=== PATIENT | male | born 1980 | race Caucasian/White ===

== ENCOUNTER 2017-01-24 12:50 | Observation (INO) | payer BC ==
--- NOTE | 2017-01-24 13:13 | ER Document Report ---
ED Medical Screen (RME) - General Chief Complaint: Chest Tightness Stated Complaint: CHEST TIGHTNESS Time Seen by Provider: 01/24/17 13:04 Notes: 36-year-old male patient reports onset 9 PM last night of chest tightness and palpitations. It did not prevent him from sleeping. His regular medications are Lexapro Xyzal and Zyrtec. He denies taking any bodybuilding substances or stimulants. EKG suggests atrial fib-flutter with a rate of 100. I have greeted and performed a rapid initial assessment of this patient. A comprehensive ED assessment and evaluation of the patient, analysis of test results and completion of the medical decision making process will be conducted by additional ED providers. TRAVEL OUTSIDE OF THE [place] IN LAST 30 DAYS: No - Related Data Allergies/Adverse Reactions: No Known Allergies Allergy (Verified 01/24/17 12:59) Past Medical History - Social History Chew tobacco use (# tins/day): No Frequency of alcohol use: Rare Drug Abuse: None Renal/ Medical History: Denies: Hx Peritoneal Dialysis Psychiatric Medical History: Reports: Hx Depression Surgical Hx: Negative - Immunizations Hx Diphtheria, Pertussis, Tetanus Vaccination: Yes Physical Exam - Vital signs Vitals: Temp Pulse Resp BP Pulse Ox 97.8 F 62 16 137/84 H 95 01/24/17 12:59 01/24/17 12:59 01/24/17 12:59 01/24/17 12:59 01/24/17 12:59 Course - Vital Signs Vital signs: Temp Pulse Resp BP Pulse Ox 97.8 F 62 16 137/84 H 95 01/24/17 12:59 01/24/17 12:59 01/24/17 12:59 01/24/17 12:59 01/24/17 12:59
[2017-01-24 13:53] LABS: ABSOLUTE EOSINOPHILS # (AUTO) 0.1 10^3/uL (0.0-0.6); ABSOLUTE LYMPHOCYTES (AUTO) 1.8 10^3/uL (0.5-4.7); ABSOLUTE MONOCYTES (AUTO) 0.7 10^3/uL (0.1-1.4); ABSOLUTE NEUT (AUTO) 3.7 10^3/uL (1.7-8.2); BASOPHILS % (AUTO) 0.6 % (0-2); EOSINOPHILS % (AUTO) 2.1 % (0-6); HEMATOCRIT 48.6 % (37.9-51.0); HEMOGLOBIN 16.7 g/dL (13.5-17.0); HGB HCT DIFFERENCE 1.5; LYMPHOCYTES % (AUTO) 27.7 % (13-45); MEAN CORPUSCULAR HEMOGLOBIN 30.8 pg (27.0-33.4); MEAN CORPUSCULAR HGB CONC 34.3 g/dL (32.0-36.0); MEAN CORPUSCULAR VOLUME 90 fl (80-97); MONOCYTES % (AUTO) 10.9 % (3-13); RED CELL DISTRIBUTION WIDTH 14.7 % (11.5-14.0); SEGMENTED NEUTROPHILS % (AUTO) 58.7 % (42-78); WHITE BLOOD COUNT 6.3 10^3/uL (4.0-10.5)
--- NOTE | 2017-01-24 14:04 | RADIOLOGY REPORT (SQ) ---
EXAM DESCRIPTION: CHEST SINGLE VIEW COMPLETED DATE/TIME: 01/24/2017 1:56 pm REASON FOR STUDY: chest tight, new onset A-fib COMPARISON: 04/07/2014 EXAM PARAMETERS: NUMBER OF VIEWS: One view. TECHNIQUE: Single frontal radiographic view of the chest acquired. RADIATION DOSE: NA LIMITATIONS: None. FINDINGS: LUNGS AND PLEURA: No opacities, masses or pneumothorax. No pleural effusion. MEDIASTINUM AND HILAR STRUCTURES: No masses. Contour normal. HEART AND VASCULAR STRUCTURES: Heart normal in size. Normal vasculature. BONES: No acute findings. HARDWARE: None in the chest. OTHER: No other significant finding. IMPRESSION: NO ACUTE RADIOGRAPHIC FINDING IN THE CHEST. TECHNICAL DOCUMENTATION: JOB ID: [id number]
[2017-01-24 14:11] LABS: ALANINE AMINOTRANSFERASE 95 U/L (21-72); ALBUMIN 4.5 g/dL (3.5-5.0); ALKALINE PHOSPHATASE 71 U/L (38-126); ANION GAP 12 (5-19); ASPARTATE AMINO TRANSFERASE 47 U/L (17-59); BILIRUBIN,DIRECT 0.3 mg/dL (0.0-0.4); BILIRUBIN,TOTAL 0.6 mg/dL (0.2-1.3); BLOOD UREA NITROGEN 18 mg/dL (7-20); CARBON DIOXIDE 30 mmol/L (22-30); CHLORIDE 104 mmol/L (98-107); CREATINE KINASE 127 U/L (55-170); CREATININE RESULT 1.11 mg/dL (0.52-1.25); GLUCOSE 87 mg/dL (75-110); POTASSIUM 4.6 mmol/L (3.6-5.0); SODIUM 146.2 mmol/L (137-145); TOTAL PROTEIN 7.8 g/dL (6.3-8.2)
[2017-01-24 14:11] LABS: APPEARANCE,URINE CLEAR; BILIRUBIN,URINE NEGATIVE (NEGATIVE); GLUCOSE, URINE NEGATIVE (NEGATIVE); KETONES,URINE NEGATIVE (NEGATIVE); LEUKOCYTE ESTERASE,URINE NEGATIVE (NEGATIVE); NITRITE,URINE NEGATIVE (NEGATIVE); PROTEIN,URINE NEGATIVE (NEGATIVE); URINE SPECIFIC GRAVITY 1.026; UROBILINOGEN,URINE NEGATIVE mg/dL (<2.0)
[2017-01-24 14:24] LABS: CREATINE KINASE MB 0.96 ng/mL (<4.55)
[2017-01-24 14:34] LABS: TROPONIN I < 0.012 ng/mL
[2017-01-24 14:34] LABS: URINE BARBITURATES SCREEN NEGATIVE; URINE METHADONE SCREEN NEGATIVE; URINE OPIATES LOW NEGATIVE; URINE PHENCYCLIDINE SCREEN NEGATIVE
[2017-01-24] MEDS ORDERED: DILTIAZEM HCL/D5W 125 ML IV PRN ×2 (15:15→15:32)
[2017-01-24] MEDS ORDERED: DILTIAZEM HCL INJ 25 MG/5 ML VIAL IV ONE (15:20)
--- NOTE | 2017-01-24 15:23 | ER Document Report ---
ED Cardiac - General Chief Complaint: Chest Tightness Stated Complaint: CHEST TIGHTNESS Time Seen by Provider: 01/24/17 13:04 Mode of Arrival: Ambulatory Information source: Patient Notes: Patient is a 36-year-old male with a history of depression and sleep apnea who presents to the ER today for chest discomfort and palpitations that began last night. Patient has no history of atrial fibrillation, heart attack or stroke. He denies any shortness of breath, nausea with the symptoms. He does have family history of heart attack and stroke but does not know about A. fib. TRAVEL OUTSIDE OF THE [place] IN LAST 30 DAYS: No - Related Data Allergies/Adverse Reactions: No Known Allergies Allergy (Verified 01/24/17 12:59) Past Medical History - General Information source: Patient - Social History Smoking Status: Never Smoker Chew tobacco use (# tins/day): No Frequency of alcohol use: Rare Drug Abuse: None Family History: Reviewed & Not Pertinent Patient has suicidal ideation: No Patient has homicidal ideation: No Renal/ Medical History: Denies: Hx Peritoneal Dialysis Psychiatric Medical History: Reports: Hx Depression Surgical Hx: Negative - Immunizations Hx Diphtheria, Pertussis, Tetanus Vaccination: Yes Review of Systems - Review of Systems Constitutional: No symptoms reported EENT: No symptoms reported Cardiovascular: See HPI Respiratory: No symptoms reported Gastrointestinal: No symptoms reported Genitourinary: No symptoms reported Male Genitourinary: No symptoms reported Musculoskeletal: No symptoms reported Skin: No symptoms reported Hematologic/Lymphatic: No symptoms reported Neurological/Psychological: No symptoms reported Physical Exam - Vital signs Vitals: Temp Pulse Resp BP Pulse Ox 97.8 F 62 16 137/84 H 95 01/24/17 12:59 01/24/17 12:59 01/24/17 12:59 01/24/17 12:59 01/24/17 12:59 - Notes Notes: PHYSICAL EXAMINATION: GENERAL: Well-appearing and in no acute distress. HEAD: Atraumatic, normocephalic. EYES: Pupils equal round and reactive to light, extraocular movements intact, sclera anicteric, conjunctiva are normal. NECK: Normal range of motion, supple without lymphadenopathy LUNGS: CTAB and equal. No wheezes rales or rhonchi. HEART: Irregularly irregular rhythm without murmurs ABDOMEN: Soft, no tenderness. No guarding, no rebound EXTREMITIES: Normal range of motion, no pitting edema. No cyanosis. NEUROLOGICAL: Cranial nerves grossly intact. Normal sensory/motor exams. PSYCH: Normal mood, normal affect. SKIN: Warm, Dry, normal turgor, no rashes or lesions noted Course - Re-evaluation Re-evalutation: 01/24/17 15:[address] Cole who wants pt admitted for stat echo and cardizem drip. pt agrees with plan. Dr. Meadows consulted and agrees. Dr. Arriaza accepts pt for admission to [facility]. - Vital Signs Vital signs: Temp Pulse Resp BP Pulse Ox 97.8 F 62 16 137/84 H 95 01/24/17 12:59 01/24/17 12:59 01/24/17 12:59 01/24/17 12:59 01/24/17 12:59 - Laboratory Result Diagrams: 01/24/17 13:15 01/24/17 13:15 Laboratory results interpreted by me: 01/24/17 01/24/17 01/24/17 13:15 13:15 13:53 RDW 14.7 H Sodium 146.2 H ALT 95 H Urine Ascorbic Acid 40 H Discharge - Discharge Clinical Impression: New onset atrial fibrillation Condition: Stable Disposition: ADMITTED INPATIENT Admitting Provider: Hospitalist Unit Admitted: [facility] Referrals: MATT RUEDA PA-C [Primary Care Provider] - Follow up as needed
[2017-01-24] MEDS ORDERED: NITROGLYCERIN 0.4 MG/TAB 25 TAB/BOTTLE SL PRN (15:24)
--- NOTE | 2017-01-24 16:02 | PDOC H&P ---
History of Present Illness Admission Date/PCP: MATT RUEDA PA-C Patient complains of: Palpitations and chest tightness History of Present Illness: RORY MARTINEZ is a 36 year old male with past medical history of obstructive sleep apnea, and mild depression. He presents to emergency room complaining of palpitations that began last evening and some mild chest tightness. He denies any shortness of breath, diaphoresis or nausea associated with the pain. Chest tightness did not change with activity and came on at rest. His chest tightness resolved right after his presentation here. He denies any shortness of breath or dyspnea. He denies any cough. He was found to be in atrial fibrillation with ventricular response of 90-120. He has no prior history of atrial fibrillation. He does have family history of coronary artery disease in his father at the age of 40 and grandfather in his 30s. He has no history of hypertension, dyslipidemia or tobacco use. He denies excessive alcohol use or stress. He denies any illicit drug use. He denies any use of [id number]-[id number] energy drinks or stimulants. 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 Past Medical History Cardiac Medical History: Reports: None Pulmonary Medical History: Reports: Sleep Apnea - on CPAP for the last year EENT Medical History: Reports: None Neurological Medical History: Reports: None Endocrine Medical History: Reports: None Renal/ Medical History: Reports: None Malignancy Medical History: Reports: None Musculoskeltal Medical History: Reports: None Psychiatric Medical History: Reports: Depression Traumatic Medical History: Reports: None Hematology: Reports: None Infectious Medical History: Reports: None Past Surgical History Past Surgical History: Reports: None Social History Information Source: Patient Lives with: Spouse/Significant other Smoking Status: Never Smoker Frequency of Alcohol Use: Occasional Hx Recreational Drug Use: No - Advance Directive Resuscitation Status: Full Code Surrogate healthcare decision maker:: Suri, Family History Family History: Reviewed & Not Pertinent Parental Family History Reviewed: Yes Children Family History Reviewed: Yes Sibling(s) Family History Reviewed.: Yes Medication/Allergy Home Medications: Escitalopram Oxalate [Lexapro 10 mg Tablet] 10 mg PO QHS 04/07/14 Ondansetron [Zofran Odt 4 mg Tablet] 2 tab PO Q6H #16 tab.rapdis 04/07/14 Oxycodone HCl/Acetaminophen [Percocet 5-325 mg Tablet] 1 - 2 tab PO ASDIR PRN # 15 tablet 04/07/14 Allergies/Adverse Reactions: No Known Allergies Allergy (Verified 01/24/17 12:59) Review of Systems Constitutional: ABSENT: chills, fever(s), headache(s), weight gain, weight loss Eyes: ABSENT: visual disturbances Ears: ABSENT: hearing changes Cardiovascular: PRESENT: chest pain, palpitations Respiratory: ABSENT: cough, hemoptysis Gastrointestinal: ABSENT: abdominal pain, constipation, diarrhea, hematemesis, hematochezia, nausea, vomiting Genitourinary: ABSENT: dysuria, hematuria Musculoskeletal: ABSENT: joint swelling Integumentary: ABSENT: rash, wounds Neurological: ABSENT: abnormal gait, abnormal speech, confusion, dizziness, focal weakness, syncope Psychiatric: PRESENT: depression. ABSENT: anxiety, homidical ideation, suicidal ideation Endocrine: ABSENT: cold intolerance, heat intolerance, polydipsia, polyuria Hematologic/Lymphatic: ABSENT: easy bleeding, easy bruising Physical Exam Vital Signs: Temp Pulse Resp BP Pulse Ox 97.8 F 62 16 137/84 H 95 01/24/17 12:59 01/24/17 12:59 01/24/17 12:59 01/24/17 12:59 01/24/17 12:59 Intake & Output 01/23/17 01/24/17 01/25/17 06:59 06:59 06:59 Weight 102.6 kg General appearance: PRESENT: no acute distress, well-developed, well-nourished Head exam: PRESENT: atraumatic, normocephalic Eye exam: PRESENT: conjunctiva pink, EOMI, PERRLA. ABSENT: scleral icterus Ear exam: PRESENT: normal external ear exam Mouth exam: PRESENT: moist, tongue midline Neck exam: ABSENT: carotid bruit, JVD, lymphadenopathy, thyromegaly Respiratory exam: PRESENT: clear to auscultation maisha. ABSENT: rales, rhonchi, wheezes Cardiovascular exam: PRESENT: irregular rhythm, tachycardia Pulses: PRESENT: normal dorsalis pedis pul Vascular exam: PRESENT: normal capillary refill GI/Abdominal exam: PRESENT: normal bowel sounds, soft. ABSENT: distended, guarding, mass, organolmegaly, rebound, tenderness Rectal exam: PRESENT: deferred Extremities exam: PRESENT: full ROM. ABSENT: calf tenderness, clubbing, pedal edema Neurological exam: PRESENT: alert, awake, oriented to person, oriented to place , oriented to time, oriented to situation, CN II-XII grossly intact. ABSENT: motor sensory deficit Psychiatric exam: PRESENT: appropriate affect, normal mood. ABSENT: homicidal ideation, suicidal ideation Skin exam: PRESENT: dry, intact, warm. ABSENT: cyanosis, rash Results Laboratory Results: 01/24/17 13:15 01/24/17 13:15 01/24/17 01/24/17 01/24/17 13:15 13:15 13:15 WBC 6.3 RBC 5.40 Hgb 16.7 Hct 48.6 MCV 90 MCH 30.8 MCHC 34.3 RDW 14.7 H Plt Count 213 Seg Neutrophils % 58.7 Lymphocytes % 27.7 Monocytes % 10.9 Eosinophils % 2.1 Basophils % 0.6 Absolute Neutrophils 3.7 Absolute Lymphocytes 1.8 Absolute Monocytes 0.7 Absolute Eosinophils 0.1 Absolute Basophils 0.0 Sodium 146.2 H Potassium 4.6 Chloride 104 Carbon Dioxide 30 Anion Gap 12 BUN 18 Creatinine 1.11 Est GFR ( Amer) > 60 Est GFR (Non-Af Amer) > 60 Glucose 87 Calcium 10.0 Total Bilirubin 0.6 AST 47 ALT 95 H Alkaline Phosphatase 71 Total Protein 7.8 Albumin 4.5 TSH 1.90 Urine Color Urine Appearance Urine pH Ur Specific [place] Urine Protein Urine Glucose (UA) Urine Ketones Urine Blood Urine Nitrite Ur Leukocyte Esterase Urine WBC (Auto) Urine RBC (Auto) 01/24/17 13:53 WBC RBC Hgb Hct MCV MCH MCHC RDW Plt Count Seg Neutrophils % Lymphocytes % Monocytes % Eosinophils % Basophils % Absolute Neutrophils Absolute Lymphocytes Absolute Monocytes Absolute Eosinophils Absolute Basophils Sodium Potassium Chloride Carbon Dioxide Anion Gap BUN Creatinine Est GFR ( Amer) Est GFR (Non-Af Amer) Glucose Calcium Total Bilirubin AST ALT Alkaline Phosphatase Total Protein Albumin TSH Urine Color YELLOW Urine Appearance CLEAR Urine pH 5.0 Ur Specific [place] 1.026 Urine Protein NEGATIVE Urine Glucose (UA) NEGATIVE Urine Ketones NEGATIVE Urine Blood NEGATIVE Urine Nitrite NEGATIVE Ur Leukocyte Esterase NEGATIVE Urine WBC (Auto) 1 Urine RBC (Auto) 1 01/24/17 01/24/17 13:15 13:15 Creatine Kinase 127 CK-MB (CK-2) 0.96 Troponin I < 0.012 Impressions: Chest X-Ray 01/24/17 13:05 IMPRESSION: NO ACUTE RADIOGRAPHIC FINDING IN THE CHEST. Assessment & Plan - Diagnosis (1) New onset atrial fibrillation Is this a current diagnosis for this admission?: YesPlan: IV diltiazem, consult cardiology (2) Depression Is this a current diagnosis for this admission?: YesPlan: Continue lexapro. (3) CHARISMA on CPAP Is this a current diagnosis for this admission?: YesPlan: Continue CPAP at HS - Time Time Spent: 50 to 70 Minutes Critical Time spent with patient: 25-34 minutes Medications reviewed and adjusted accordingly: Yes Anticipated discharge: Home
[2017-01-24] MEDS: ONDANSETRON 4 MG TAB.RAPDIS PO SCH ×2 (18:57→23:14)
--- NOTE | 2017-01-24 19:41 | PDOC CONSULTATION ---
Consultation Consult Date: 01/24/17 Attending physician:: NADJA MURRAY Consult reason:: Atrial fibrillation and chest pain History of Present Illness Admission Date/PCP: 01/24/17 15:24 MATT RUEDA PA-C Patient complains of: Palpitations and chest pain History of Present Illness: RORY MARTINEZ is a 36 year old male with past medical history of obstructive sleep apnea, and mild depression. He presents to emergency room complaining of palpitations that began last evening and some mild chest tightness. He denies any shortness of breath, diaphoresis or nausea associated with the pain. Chest tightness did not change with activity and came on at rest. His chest tightness resolved right after his presentation here. He denies any shortness of breath or dyspnea. He denies any cough. He was found to be in atrial fibrillation with ventricular response of 90-120. He has no prior history of atrial fibrillation. He does have family history of coronary artery disease in his father at the age of 40 and grandfather in his 30s. He has no history of hypertension, dyslipidemia or tobacco use. He denies excessive alcohol use or stress. He denies any illicit drug use. He denies any use of [id number] energy drinks or stimulants. 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 Patient has history of sleep apnea claims to be compliant with CPAP machine with controlled AHI. Patient denied any prior history of atrial fibrillation, family history of atrial fibrillation. Patient denies any recent weight gain or weight loss. This history was supplemented reviewed and confirmed. Past Medical History Cardiac Medical History: Reports: None Pulmonary Medical History: Reports: None, Sleep Apnea - on CPAP for the last year EENT Medical History: Reports: None Neurological Medical History: Reports: None Endocrine Medical History: Reports: None Renal/ Medical History: Reports: None Malignancy Medical History: Reports: None Musculoskeltal Medical History: Reports: None Psychiatric Medical History: Reports: Depression Traumatic Medical History: Reports: None Hematology: Reports: None Infectious Medical History: Reports: None Past Surgical History Past Surgical History: Reports: None Social History Information Source: Patient Lives with: Spouse/Significant other Smoking Status: Never Smoker Frequency of Alcohol Use: Occasional Hx Recreational Drug Use: No - Advance Directive Resuscitation Status: Full Code Surrogate healthcare decision maker:: Patient's mother Family History Family History: CAD - Strong family history of premature coronary artery disease from paternal side Parental Family History Reviewed: Yes Children Family History Reviewed: Yes Sibling(s) Family History Reviewed.: Yes Medication/Allergy Home Medications: Escitalopram Oxalate [Lexapro] 20 mg PO DAILY 01/24/17 Testosterone [Fortesta] 2 sprays TD ASDIR PRN 01/24/17 Apixaban [Eliquis 5 mg Tablet] 5 mg PO Q12 #60 tablet 01/25/17 Diltiazem HCl [Cardizem Cd 120 mg Capsule] 120 mg PO DAILY #30 cap.sr.24h Allergies/Adverse Reactions: No Known Allergies Allergy (Verified 01/24/17 12:59) Review of Systems Review of Systems: Please see history of present illness and past medical history as wall. Constitutional: No fever or chills reported. Head : No recent chronic headaches, recent head injury. Eyes: No recent eye pain, diplopia, redness, discharge, acute visual changes. Ears: No recent chronic ear pain, acute hearing loss, ear discharge. Oral cavity: No recent ulcerations, bleeding, oral cavity discomfort. Neck: No recent acute neck pain reported. Hematologic: No recent easy bruising or bleeding or hematologic malignancy reported. Lymphatic: No recent lymphatic malignancy, chronic lymphadenopathy reported yet Cardiovascular system review: See history of present illness. Respiratory system review: No recent chronic cough, hemoptysis, blood clots in the lungs reported. Mild Shortness of breath on exertion Gastrointestinal system review: Negative for any recent acute or chronic abdominal pain, hematemesis, melena, recent change in bowel habits. Genitourinary system review: No recent acute or chronic hematuria, flank pain, UTI etc. reported. Skin system review: Negative for any recent abnormal bruising, no rash, no pruritus reported. Neurologic: No prior history of strokes, mini strokes, seizure disorder. Psychologic: No history of major psychosis or major depression reported. Musculoskeletal: Minor aches and pains reported. No acute joint swelling reported. Endocrine: No recent polyuria, polydipsia, recent heat or cold intolerance. Physical Exam Vital Signs: Temp Pulse Resp BP Pulse Ox 98.1 F 90 18 126/76 H 97 01/24/17 17:48 01/24/17 18:40 01/24/17 17:48 01/24/17 17:48 01/24/17 17:48 Exam: GENERAL: well-nourished and in no acute distress. Alert and oriented x3 HEAD: Atraumatic, normocephalic. EYES: Pupils equal round and reactive to light, extraocular movements intact, sclera anicteric, conjunctiva are normal. ENT: TMs normal, nares patent, oropharynx clear without exudates. Moist mucous membranes. No oral ulcerations or bleeding gums noted NECK: supple without lymphadenopathy. Trachea is central. No cervical or axillary lymphadenopathy noted. Carotids are 2+, JVD WNL LUNGS: Respiration seems nonlabored, no significant accessory muscle action noted. Breath sounds clear to auscultation bilaterally and equal noted. No wheezes rales or rhonchi noted. No significant dullness noted on percussion. CHEST: Palpation of the chest wall shows no significant chest wall tenderness. No other significant abnormalities noted. HEART: [employer], No PSH, 1/6 NENA aortic area, 1/6 penaloza systolic murmur mitral area, no rubs, no gallops. ABDOMEN: Soft, no significant tenderness appreciated, normoactive bowel sounds. No guarding, no rebound. No rigidity noted . No masses appreciated. EXTREMITIES: Pedal pulses are 1-2+, no calf tenderness noted. No clubbing or cyanosis.trace to 1+ pedal edema noted NEUROLOGICAL: Focused neurological exam showed no significant neurologic deficit. Normal speech, no focal weakness appreciated. PSYCH: Normal mood, normal affect. Judgment and insight within normal limits. SKIN: No significant ecchymosis, rash, ulcerations or signs of pruritus noted. MUSCULOSKELETAL EXAM: No significant joint swelling noted. Results EKG Comments: Atrial fibrillation with controlled ventricular response. Impressions: Chest X-Ray 01/24/17 13:05 IMPRESSION: NO ACUTE RADIOGRAPHIC FINDING IN THE CHEST. Assessment & Plan - Diagnosis (1) New onset atrial fibrillation Is this a current diagnosis for this admission?: Yes (2) CHARISMA on CPAP Is this a current diagnosis for this admission?: Yes (3) Depression Qualifiers: Depression Type: unspecified Qualified Code(s): F32.9 - Major depressive disorder, single episode, unspecified Is this a current diagnosis for this admission?: Yes (4) Obesity (BMI 30.0-34.9) Is this a current diagnosis for this admission?: Yes - Notes Notes: New onset atrial fibrillation: Exact etiology not clear but could be idiopathic , related to sleep apnea syndrome, obesity. TSH level is normal. Have started patient on Lovenox. Will give him a dose of Rythmol 600 mg. If patient does not convert overnight will consider chemical and/or electrical cardioversion. A stat echo has been ordered to be performed prior to cardioversion if needed..12 lead EKG reviewed. It shows continuing Atrial fibrillation. Nurse instructed to give Rythmol only if patient remains in Atrial fibrillation and not give it if patient has spontaneously converted to sinus rhythm. Orders written for magnesium sulfate to be given if medication level less than 1.8. Potassium was noted to be WNL. Obstructive sleep apnea on CPAP therapy: Patient advised to bring his CPAP machine and use it overnight. Obesity: Patient encouraged in weight loss. Depression: Continue current antidepressant. - Time Time Spent: 30 to 50 Minutes - CODE STATUS was discussed, patient remains full code. Surrogate decision-maker patient's mother. Multiple medical problems were addressed. More than 50% of the time spent coordinating care, discussing management plans with involved caregivers. Management plans discussed with involved personnels. Medical decision making was of moderate to high complexity , patient's has multiple comorbidities. Medications reviewed and adjusted accordingly: Yes
[2017-01-24] MEDS ORDERED: PROPAFENONE HCL 150 MG TABLET PO ONE (20:15)
[2017-01-24] MEDS ORDERED: MAGNESIUM SULFATE 1 GM/D5W 100 ML IV SCH (20:30)
[2017-01-24] MEDS: ENOXAPARIN SODIUM INJ 100 MG/1 ML DISP.SYRIN SUBCUT SCH (21:07)
[2017-01-24] MEDS ORDERED: ESCITALOPRAM OXALATE 10 MG TABLET PO SCH (22:00)
[2017-01-25] MEDS: ONDANSETRON 4 MG TAB.RAPDIS PO SCH (05:25)
[2017-01-25 08:49] LABS: CHOLESTEROL 189.86 mg/dL (0-200); Direct HDL 41 mg/dL (>40); TRIGLYCERIDES 159 mg/dL (<150)
[2017-01-25 09:01] LABS: DIRECT LDL 124 mg/dL (<100)
[2017-01-25 09:04] LABS: VLDL CHOLESTEROL 31.8 mg/dL (10-31)
[2017-01-25] MEDS ORDERED: DILTIAZEM HCL 120 MG CAP.SR.24H PO SCH (10:00)
[2017-01-25] MEDS ORDERED: ASPIRIN 81 MG TABLET, ENT COATED PO SCH (10:00)
[2017-01-25] MEDS ORDERED: APIXABAN 5 MG TABLET PO SCH (10:00)
[2017-01-25] MEDS ORDERED: TESTOSTERONE TD PRN (10:13)
--- NOTE | 2017-01-25 10:41 | XCELERA REPORT ---
[address] [address] Transthoracic Echocardiogram Report Name: RORY MARTINEZ Age: 36 yrs Gender: Male : 1980 Patient Status: Inpatient Patient Location: [id number]\S\314\S\A Study Date: 01/25/2017 08:54 AM Height: 71 in Weight: 226 lb BSA: 2.2 m2 Procedure: A complete two-dimensional transthoracic echocardiogram was performed (2D, M-mode, spectral and color flow Doppler). The study was technically adequate with some images being suboptimal in quality. Reason For Study: AFIB NEW ONSET FLUTTER Ordering Physician: DAVID FERMIN Performed By: Armen Lovell Interpretation Summary The left ventricular ejection fraction is normal. Doppler measurements suggest normal left ventricular diastolic function There is borderline concentric left ventricular hypertrophy. The left ventricle is grossly normal size. No definite regional wall motion abnormalities noted. The left ventricular apex is not well visualized. The right ventricle is grossly normal size. The right ventricular systolic function is normal. The right atrium is normal. The left atrial size is normal. There is no mitral valve stenosis. There is a trace amount of mitral regurgitation There is no aortic valve stenosis No aortic regurgitation is present. Tricuspid regurgitation jet envelope not well defined to measure RV systolic pressure accurately. Right ventricular systolic pressure is at the upper limits of normal There is no pericardial effusion. MMode/2D Measurements \T\ Calculations RVDd: 4.0 cm LVIDd: 5.2 cm FS: 28.2 % Ao root diam: 3.6 cm IVSd: 1.1 cm LVIDs: 3.8 cm EDV(Teich): 132.3 ml LVPWd: 1.1 cm ESV(Teich): 60.7 ml Ao root area: 10.1 cm2 EF(Teich): 54.1 % LA dimension: 3.4 cm Doppler Measurements \T\ Calculations MV E max emily: MV P1/2t max emily: Ao V2 max: LV V1 max P.6 cm/sec 104.8 cm/sec 87.5 cm/sec 2.9 mmHg MV P1/2t: 40.7 msec Ao max PG: LV V1 max: 3.1 mmHg 85.3 cm/sec MVA(P1/2t): 5.4 cm2 MV dec slope: 753.6 cm/sec2 PA V2 max: PI end-d emily: TR max emily: RAP systole: 64.2 cm/sec 74.7 cm/sec 243.7 cm/sec 5.0 mmHg PA max P.6 mmHg TR max P.3 mmHg RVSP(TR): 29.3 mmHg Left Ventricle The left ventricle is grossly normal size. There is borderline concentric left ventricular hypertrophy. The left ventricular ejection fraction is normal. Doppler measurements suggest normal left ventricular diastolic function. No regional wall motion abnormalities noted. The left ventricular apex is not well visualized. Right Ventricle The right ventricle is grossly normal size. There is normal right ventricular wall thickness. The right ventricular systolic function is normal. Atria The right atrium is normal. The left atrial size is normal. Interarterial septum not well visualized and not well dopplered. Cannot comment on ASD/PFO presence. Mitral Valve The mitral valve is grossly normal. There is no mitral valve stenosis. There is a trace amount of mitral regurgitation. Aortic Valve The aortic valve is grossly normal. There is no aortic valve stenosis. No aortic regurgitation is present. Tricuspid Valve The tricuspid valve is not well visualized, but is grossly normal. There is no tricuspid stenosis. Tricuspid regurgitation jet envelope not well defined to measure RV systolic pressure accurately. Right ventricular systolic pressure is at the upper limits of normal. Pulmonic Valve The pulmonic valve is not well seen, but is grossly normal. There is a trace or physiologic amount of pulmonic regurgitation. Great Vessels The aortic root is not well visualized but is probably normal size. The inferior vena cava appeared normal and decreased > 50% with respiration (RAP 5-10 mmHg). Effusions There is no pericardial effusion. : DAVID FERMIN > David Fermin
[2017-01-25] MEDS: ENOXAPARIN SODIUM INJ 100 MG/1 ML DISP.SYRIN SUBCUT SCH (10:46)
[2017-01-25 11:36] VITALS: BP 126/76
--- NOTE | 2017-01-25 11:36 | PDOC PROGRESS REPORT ---
<CHINEDU FERMIN - Last Filed: 01/25/17 11:33> Subjective Progress Note for:: 01/25/17 Subjective:: Patient seems to be doing better with significant improvement. Pt is denying any chest arm or neck discomfort. Patient denying any PND, orthopnea. Patient denied any sustained palpitations, dizziness, syncope, near syncope. Patient denying any fever chills. Patient denying any other significant discomfort. Patient is converted to sinus rhythm at around 11:30 PM. Review of systems: Rest review of systems negative. Medications: Medications have been reviewed. Physical Exam Vital Signs: Temp Pulse Resp BP Pulse Ox 97.6 F 65 12 119/75 100 01/25/17 07:40 01/25/17 07:40 01/25/17 07:40 01/25/17 07:40 01/25/17 07:40 Intake & Output 01/24/17 01/25/17 01/26/17 06:59 06:59 06:59 Intake Total 1199 Balance 1199 Weight 105.3 kg Exam: GENERAL: well-nourished and in no acute distress. Alert and oriented x3 HEAD: Atraumatic, normocephalic. EYES: Pupils equal round and reactive to light, extraocular movements intact, sclera anicteric, conjunctiva are normal. ENT: TMs normal, nares patent, oropharynx clear without exudates. Moist mucous membranes. No oral ulcerations or bleeding gums noted NECK: supple without lymphadenopathy. Trachea is central. No cervical or axillary lymphadenopathy noted. Carotids are 2+, JVD WNL LUNGS: Respiration seems nonlabored, no significant accessory muscle action noted. Breath sounds clear to auscultation bilaterally and equal noted. No wheezes rales or rhonchi noted. No significant dullness noted on percussion. CHEST: Palpation of the chest wall shows no significant chest wall tenderness. No other significant abnormalities noted. HEART: [place] ANALOG IC DESIGN ARCHITECT, No PSH, 1/6 NENA aortic area, 1/6 pen[place]za systolic murmur mitral area, no rubs, no gallops. ABDOMEN: Soft, no significant tenderness appreciated, normoactive bowel sounds. No guarding, no rebound. No rigidity noted . No masses appreciated. EXTREMITIES: Pedal pulses are 1-2+, no calf tenderness noted. No clubbing or cyanosis.trace to 1+ pedal edema noted NEUROLOGICAL: Focused neurological exam showed no significant neurologic deficit. Normal speech, no focal weakness appreciated. PSYCH: Normal mood, normal affect. Judgment and insight within normal limits. SKIN: No significant ecchymosis, rash, ulcerations or signs of pruritus noted. MUSCULOSKELETAL EXAM: No significant joint swelling noted. Results Laboratory Results: 01/24/17 01/25/17 19:10 07:45 Magnesium 2.0 Triglycerides 159 H Cholesterol 189.86 LDL Cholesterol Direct 124 H VLDL Cholesterol 31.8 H HDL Cholesterol 41 01/24/17 01/25/17 01/25/17 19:10 01:15 07:45 Troponin I < 0.012 < 0.012 < 0.012 Impressions: Chest X-Ray 01/24/17 13:05 IMPRESSION: NO ACUTE RADIOGRAPHIC FINDING IN THE CHEST. Assessment & Plan - Diagnosis (1) New onset atrial fibrillation Is this a current diagnosis for this admission?: Yes (2) CHARISMA on CPAP Is this a current diagnosis for this admission?: Yes (3) Depression Is this a current diagnosis for this admission?: Yes (4) Obesity (BMI 30.0-34.9) Is this a current diagnosis for this admission?: Yes - Notes Notes: Atrial fibrillation, paroxysmal now converted to sinus rhythm. Since this was first episode, did not feel chronic antiarrhythmic therapy is indicated. Will recommend oral anticoagulants for 1 month only at this point. Patient will benefit from if there is recurrence of atrial fibrillation, patient will benefit from ablation therapy and isolation of pulmonary veins. Obstructive sleep apnea: Patient to continue with CPAP therapy. Depression: Continue current SSRI agent Obesity: Patient has been encouraged to lose weight. Patient can follow-up with me. He was given my card. - Time Time with patient: 15-25 minutes - CODE STATUS was discussed, patient remains full code. Surrogate decision-maker unchanged. Multiple medical problems were addressed. More than 50% of the time spent coordinating care, discussing management plans with involved caregivers. Management plans discussed with involved personnels. Medical decision making was of moderate to high complexity , patient's has multiple comorbidities. Medications reviewed and adjusted accordingly: Yes <CRISTINE MALONE - Last Filed: 01/25/17 11:43> Physical Exam Vital Signs: Temp Pulse Resp BP Pulse Ox 97.6 F 65 12 126/76 H 100 01/25/17 11:34 01/25/17 11:34 01/25/17 11:34 01/25/17 11:34 01/25/17 11:34 Intake & Output 01/24/17 01/25/17 01/26/17 06:59 06:59 06:59 Intake Total 1199 Balance 1199 Weight 105.3 kg Results Laboratory Results: 01/24/17 01/25/17 19:10 07:45 Magnesium 2.0 Triglycerides 159 H Cholesterol 189.86 LDL Cholesterol Direct 124 H VLDL Cholesterol 31.8 H HDL Cholesterol 41 01/24/17 01/25/17 01/25/17 19:10 01:15 07:45 Troponin I < 0.012 < 0.012 < 0.012 Impressions: Chest X-Ray 01/24/17 13:05 IMPRESSION: NO ACUTE RADIOGRAPHIC FINDING IN THE CHEST. Assessment & Plan - Diagnosis (1) New onset atrial fibrillation Is this a current diagnosis for this admission?: Yes (2) Depression Qualifiers: Depression Type: unspecified Qualified Code(s): F32.9 - Major depressive disorder, single episode, unspecified Is this a current diagnosis for this admission?: Yes (3) CHARISMA on CPAP Is this a current diagnosis for this admission?: Yes
--- NOTE | 2017-01-25 11:44 | PDOC DISCHARGE SUMMARY ---
General - Admit/Disc Date/PCP Admission Date/Primary Care Provider: 01/24/17 15:24 MATT RUEDA PA-C Discharge Date: 01/25/17 - Discharge Diagnosis (1) New onset atrial fibrillation Is this a current diagnosis for this admission?: YesSummary: Resolved with Cardiazem and rythmol. Will follow up with Dr Youssef as an outpatient (2) Depression Is this a current diagnosis for this admission?: YesSummary: Continue lexapro (3) CHARISMA on CPAP Is this a current diagnosis for this admission?: YesSummary: Continue CPAP - Additional Information Resuscitation Status: Full Code Discharge Diet: Regular Discharge Activity: Activity As Tolerated, Balance Activity w/Rest Home Medications: Escitalopram Oxalate [Lexapro] 20 mg PO DAILY 01/24/17 Testosterone [Fortesta] 2 sprays TD ASDIR PRN 01/24/17 Apixaban [Eliquis 5 mg Tablet] 5 mg PO Q12 #60 tablet 01/25/17 Diltiazem HCl [Cardizem Cd 120 mg Capsule] 120 mg PO DAILY #30 cap.sr.24h History of Present Illness Patient complains of: Palpitations and chest tightness History of Present Illness: RORY MARTINEZ is a 36 year old male with past medical history of obstructive sleep apnea, and mild depression. He presents to emergency room complaining of palpitations that began last evening and some mild chest tightness. He denies any shortness of breath, diaphoresis or nausea associated with the pain. Chest tightness did not change with activity and came on at rest. His chest tightness resolved right after his presentation here. He denies any shortness of breath or dyspnea. He denies any cough. He was found to be in atrial fibrillation with ventricular response of 90-120. He has no prior history of atrial fibrillation. He does have family history of coronary artery disease in his father at the age of 40 and grandfather in his 30s. He has no history of hypertension, dyslipidemia or tobacco use. He denies excessive alcohol use or stress. He denies any illicit drug use. He denies any use of [id number] energy drinks or stimulants. 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 Hospital Course Hospital Course: Patient was admitted to [facility] on telemetry. He was continued on IV diltiazem. Dr Youssef, cardiology, saw the patient in consult. He was given a dose of rythmol. He converted to a sinus rhythm- sinus bradycardia shortly after. He has had no reoccurence of atrial fibrillation. He had a transthoracic echo done which was read by Dr Youssef as normal. He will be discharged home on Cardiazem CD 120 mg daily and Eliquis 5mg bid for the next month and then stop as long as he has no reoccurence of atrial fibrillation. Physical Exam Vital Signs: Temp Pulse Resp BP Pulse Ox 97.6 F 65 12 119/75 100 01/25/17 07:40 01/25/17 07:40 01/25/17 07:40 01/25/17 07:40 01/25/17 07:40 Intake & Output 01/24/17 01/25/17 01/26/17 06:59 06:59 06:59 Intake Total 1199 Balance 1199 Weight 105.3 kg General appearance: PRESENT: no acute distress, well-developed, well-nourished Head exam: PRESENT: atraumatic, normocephalic Eye exam: PRESENT: conjunctiva pink, EOMI, PERRLA. ABSENT: scleral icterus Ear exam: PRESENT: normal external ear exam Mouth exam: PRESENT: moist, tongue midline Neck exam: ABSENT: carotid bruit, JVD, lymphadenopathy, thyromegaly Respiratory exam: PRESENT: clear to auscultation maisha. ABSENT: rales, rhonchi, wheezes Cardiovascular exam: PRESENT: RRR. ABSENT: diastolic murmur, rubs, systolic murmur Pulses: PRESENT: normal dorsalis pedis pul Vascular exam: PRESENT: normal capillary refill GI/Abdominal exam: PRESENT: normal bowel sounds, soft. ABSENT: distended, guarding, mass, organolmegaly, rebound, tenderness Rectal exam: PRESENT: deferred Extremities exam: PRESENT: full ROM. ABSENT: calf tenderness, clubbing, pedal edema Neurological exam: PRESENT: alert, awake, oriented to person, oriented to place , oriented to time, oriented to situation, CN II-XII grossly intact. ABSENT: motor sensory deficit Psychiatric exam: PRESENT: appropriate affect, normal mood. ABSENT: homicidal ideation, suicidal ideation Skin exam: PRESENT: dry, intact, warm. ABSENT: cyanosis, rash Results Laboratory Results: 01/24/17 01/25/17 19:10 07:45 Magnesium 2.0 Triglycerides 159 H Cholesterol 189.86 LDL Cholesterol Direct 124 H VLDL Cholesterol 31.8 H HDL Cholesterol 41 01/24/17 01/25/17 01/25/17 19:10 01:15 07:45 Troponin I < 0.012 < 0.012 < 0.012 Impressions: Chest X-Ray 01/24/17 13:05 IMPRESSION: NO ACUTE RADIOGRAPHIC FINDING IN THE CHEST. Qualifiers PATEINT BEING DISCHARGED WITH ANY OF THE FOLLOWING DIAGNOSIS?: No Plan Discharge Plan: Home with family Time Spent: Less than 30 Minutes
--- NOTE | 2017-01-27 09:50 | EKG REPORT ---
SEVERITY:- ABNORMAL ECG - ATRIAL FIBRILLATION, V-RATE 79-128 LEFT VENTRICULAR HYPERTROPHY CONSIDER ANTERIOR INFARCT : Confirmed by: David Youssef 27-Jan-2017 09:49:51
--- NOTE | 2017-01-27 09:50 | EKG REPORT ---
SEVERITY:- BORDERLINE ECG - SINUS RHYTHM BORDERLINE LEFT AXIS DEVIATION CONSIDER ANTERIOR INFARCT BORDERLINE T ABNORMALITIES, INFERIOR LEADS : Confirmed by: David Youssef 27-Jan-2017 09:49:33
== END 2017-01-25 11:57 | disposition home or self-care (01) ==
LOC: ER 12:50 → INTOOBSV 15:24 → EH 15:24 → UNDOADMIN 16:28 → 3W 17:29
PROVIDERS: ADMIT Internal Medicine; ATTEND Internal Medicine
DX: I48.0 Paroxysmal atrial fibrillation (principal); F32.9 Major depressive disorder, single episode, unspecified; G47.33 Obstructive sleep apnea (adult) (pediatric); E66.9 Obesity, unspecified; Z79.899 Other long term (current) drug therapy; Z82.49 Family history of ischemic heart disease and other diseases of the circulatory system; Z68.32 Body mass index [BMI] 32.0-32.9, adult
CPT/HCPCS: 93005 ×2; 99285; 96365; 36415 ×2; 82553; 82550; 83735; 84443; 85025; 80053; 81001; 84484 ×2; 80307; 85379; 80061; 93306; 71010; 93010 ×2; 94660 ×2; G0378 ×3; J3490 ×4; J1650

== ENCOUNTER 2017-09-24 04:16 | Emergency (ER) | payer BC ==
[2017-09-24 05:30] LABS: ABSOLUTE EOSINOPHILS # (AUTO) 0.1 10^3/uL (0.0-0.6); ABSOLUTE MONOCYTES (AUTO) 0.5 10^3/uL (0.1-1.4); ABSOLUTE NEUT (AUTO) 2.7 10^3/uL (1.7-8.2); LYMPHOCYTES % (AUTO) 28.5 % (13-45); MEAN CORPUSCULAR HGB CONC 35.5 g/dL (32.0-36.0); TOTAL CELLS COUNTED % (AUTO) 100 %
--- NOTE | 2017-09-24 05:41 | RADIOLOGY REPORT (SQ) ---
EXAM DESCRIPTION: CHEST SINGLE VIEW CLINICAL HISTORY: palpitations COMPARISON: 01/24/2017 FINDINGS: Single frontal view of the chest. The cardiomediastinal silhouette has normal size and contour. No consolidation, pneumothorax, or pleural effusion. No displaced rib fractures identified. Leads overlie the chest. Upper abdominal soft tissues are unremarkable. IMPRESSION: 1. No acute pulmonary process identified.
[2017-09-24 05:49] LABS: ANION GAP 10 (5-19); BLOOD UREA NITROGEN 22 mg/dL (7-20); CALCIUM 9.9 mg/dL (8.4-10.2); CARBON DIOXIDE 27 mmol/L (22-30); CHLORIDE 105 mmol/L (98-107); GLUCOSE 97 mg/dL (75-110); MAGNESIUM 2.2 mg/dL (1.6-2.3); POTASSIUM 3.9 mmol/L (3.6-5.0); SODIUM 141.6 mmol/L (137-145)
[2017-09-24 06:03] LABS: ABSOLUTE LYMPHOCYTES (AUTO) 1.3 10^3/uL (0.5-4.7); BASOPHILS % (AUTO) 0.8 % (0-2); EOSINOPHILS % (AUTO) 2.5 % (0-6); HEMOGLOBIN 15.3 g/dL (13.5-17.0); MEAN CORPUSCULAR HEMOGLOBIN 31.3 pg (27.0-33.4); MEAN CORPUSCULAR VOLUME 88 fl (80-97); MONOCYTES % (AUTO) 10.4 % (3-13); PLATELET COUNT 203 10^3/uL (150-450); RED BLOOD COUNT 4.88 10^6/uL (4.35-5.55); RED CELL DISTRIBUTION WIDTH 13.6 % (11.5-14.0); SEGMENTED NEUTROPHILS % (AUTO) 57.8 % (42-78); WHITE BLOOD COUNT 4.7 10^3/uL (4.0-10.5)
--- NOTE | 2017-09-24 08:16 | ER Document Report ---
ED General - General Chief Complaint: Irregular Pulse Stated Complaint: CHEST PAIN Time Seen by Provider: 09/24/17 06:22 TRAVEL OUTSIDE OF THE [place] IN LAST 30 DAYS: No - HPI Patient complains to provider of: Palpitations chest pressure Notes: Patient states palpitation chest pressure ongoing for the last 3 days. 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 Patient states palpitations have been intermittent. Chest pressure constant. Upon my evaluation patient sleeping easily arousable denies any pain at this time. Patient follows up with local candy maker Dr. Youssef. Patient states compliant with his medications. Denies any fevers chills nausea vomiting diarrhea denies any recent travel denies any shortness of breath. - Related Data Allergies/Adverse Reactions: No Known Allergies Allergy (Verified 01/24/17 12:59) Past Medical History - Social History Smoking Status: Never Smoker Chew tobacco use (# tins/day): No Frequency of alcohol use: None Drug Abuse: None Family History: CAD - Strong family history of premature coronary artery disease from paternal side Patient has suicidal ideation: No Patient has homicidal ideation: No Pulmonary Medical History: Reports: Hx Sleep Apnea - on CPAP for the last year Renal/ Medical History: Denies: Hx Peritoneal Dialysis Psychiatric Medical History: Reports: Hx Depression - Immunizations Hx Diphtheria, Pertussis, Tetanus Vaccination: Yes Review of Systems - Review of Systems Constitutional: No symptoms reported EENT: No symptoms reported Cardiovascular: Chest pain - Pressure, Palpitations Respiratory: No symptoms reported Gastrointestinal: No symptoms reported Genitourinary: No symptoms reported Male Genitourinary: No symptoms reported Musculoskeletal: No symptoms reported Skin: No symptoms reported Hematologic/Lymphatic: No symptoms reported Neurological/Psychological: No symptoms reported Physical Exam - Vital signs Vitals: Temp Pulse Resp BP Pulse Ox 97.9 F 61 16 115/78 97 09/24/17 04:37 09/24/17 04:37 09/24/17 04:37 09/24/17 04:37 09/24/17 04:37 Interpretation: Normal - General General appearance: Appears well, Alert - HEENT Head: Normocephalic, Atraumatic Eyes: Normal Pupils: PERRL - Respiratory Respiratory status: No respiratory distress Chest status: Nontender Breath sounds: Normal Chest palpation: Normal - Cardiovascular Rhythm: Regular Heart sounds: Normal auscultation Murmur: No - Abdominal Inspection: Normal Distension: No distension Bowel sounds: Normal Tenderness: Nontender Organomegaly: No organomegaly - Back Back: Normal, Nontender - Extremities General upper extremity: Normal inspection, Nontender, Normal color, Normal ROM , Normal temperature General lower extremity: Normal inspection, Nontender, Normal color, Normal ROM , Normal temperature, Normal weight bearing. No: Jonah's sign - Neurological Neuro grossly intact: Yes Cognition: Normal Orientation: AAOx4 Adriana Coma Scale Eye Opening: Spontaneous Adriana Coma Scale Verbal: Oriented [place] Coma Scale Motor: Obeys Commands Adriana Coma Scale Total: 15 Speech: Normal Motor strength normal: LUE, RUE, LLE, RLE Sensory: Normal - Psychological Associated symptoms: Normal affect, Normal mood - Skin Skin Temperature: Warm Skin Moisture: Dry Skin Color: Normal Course - Re-evaluation Re-evalutation: 09/24/17 14:05 Laboratory studies are otherwise negative EKG does not show any signs of atrial fibrillation. Monitor strip also did not show any signs of atrial fibrillation. Discussed with Dr. Youssef agrees follow-up as outpatient for possible Holter monitor. Patient agrees with this plan will be discharged home - Vital Signs Vital signs: Temp Pulse Resp BP Pulse Ox 98.3 F 56 L 13 117/66 96 09/24/17 08:46 09/24/17 05:00 09/24/17 08:01 09/24/17 08:01 09/24/17 08:01 - Laboratory Result Diagrams: 09/24/17 05:10 09/24/17 05:10 Laboratory results interpreted by me: 09/24/17 05:10 BUN 22 H Discharge - Discharge Clinical Impression: Chest pressure, Palpitations Condition: Good Disposition: HOME, SELF-CARE Instructions: Anxiety ([facility]), Chest Wall Pain ([facility]), Chest Pain of Unclear Cause ([facility]), Palpitations (Irregular or Rapid Heartrate) ([facility]) Additional Instructions: I discussed the results with Dr. Youssef candy maker does recommend follow-up in his office for further monitoring at this time the your laboratory test did not show any signs of current atrial fibrillation or cardiac ischemia we can discharge her home. Please continue to take medications as prescribed Prescriptions: Hydroxyzine Pamoate [Vistaril 25 mg Capsule] 25 mg PO QHS #14 capsule
[2017-09-24 08:38] VITALS: BP 117/66
--- NOTE | 2017-09-24 21:31 | EKG REPORT ---
SEVERITY:- ABNORMAL ECG - SINUS RHYTHM ATRIAL PREMATURE COMPLEX LEFT VENTRICULAR HYPERTROPHY CONSIDER ANTERIOR INFARCT NONSPECIFIC T ABNORMALITIES, INFERIOR LEADS : Confirmed by: aDvid Youssef 24-Sep-2017 21:30:21
== END 2017-09-24 08:48 | disposition home or self-care (01) ==
LOC: ER 04:16
DX: R07.9 Chest pain, unspecified (principal); R00.2 Palpitations
CPT/HCPCS: 36415; 71045; 80048; 83735; 84484; 85025; 93005; 93010; 99285